=== PATIENT | male | born 1955 | race Caucasian/White ===

== ENCOUNTER 2023-05-25 10:39 | Inpatient (IN) | payer OTHER ==
[2023-05-25] VITALS (22 sets, daily range): BP systolic 83–119; BP diastolic 51–77; TEMP 97.6–98.6; O2SAT 89–97
[~2023-05-25] VITALS: Ht 180.3 cm; Wt 136.0 kg
[2023-05-25] MEDS ORDERED: HYDR-4517 PO (10:57)
[2023-05-25] MEDS ORDERED: FLUO0.0119 OTIC (10:57)
[2023-05-25] MEDS ORDERED: ROSU10TA6 PO (10:57)
[2023-05-25] MEDS ORDERED: HYDROMORPHONE HCL 0.5 MG/ 0.5 ML SYRINGE IV PRN (12:15)
[2023-05-25] MEDS ORDERED: ONDANSETRON 4MG 2ML VIAL IV ONE (12:15)
[2023-05-25] MEDS ORDERED: NS 1,000 ML IV ONE (12:25)
[2023-05-25 12:26] LABS: HEMATOCRIT 49.3 % (42.0-52.0); HEMOGLOBIN 16.7 g/dl (13.5-17.5); MEAN CORPUSCULAR HEMOGLOBIN 28.4 pg (27.0-33.0); MEAN CORPUSCULAR HGB CONC 33.9 g/dl (32.0-36.5); MEAN CORPUSCULAR VOLUME 83.7 fl (80.0-96.0); PLATELET COUNT, AUTOMATED 365 10^3/uL (150-450); RED BLOOD COUNT 5.89 10^6/uL (4.30-6.10)
[2023-05-25 12:31] LABS: WHITE BLOOD COUNT 43.3 10^3/uL (4.0-10.0)
[2023-05-25 12:50] LABS: CALCIUM LEVEL 9.2 MG/DL (8.3-10.6); CREATININE FOR GFR 5.29 MG/DL (0.70-1.30); GLOMERULAR FILTRATION RATE 11.5 (>42); POTASSIUM SERUM 4.9 MMOL/L (3.5-5.1)
[2023-05-25] MEDS ORDERED: NS 3,950 ML in IV 1 EA IV ONE (12:50)
[2023-05-25] MEDS ORDERED: PIPERACILLIN/TAZOBACTAM SOD 4.5 GM in D5W MINI-BAG PLUS 50 ML IV ONE (12:50)
[2023-05-25] MEDS ORDERED: fentaNYL 100 MCG/2 ML INJECTION IV PRN (12:55)
[2023-05-25 12:59] LABS: ATYPICAL LYMPH 4 % (0-5); EOSINOPHILS 1 % (0-3); LYMPHOCYTES 42 % (16-44); NEUTROPHILS 49 % (28-66); PLATELET ESTIMATE NORMAL (NORMAL)
[2023-05-25 13:31] LABS: ALBUMIN 1.9 G/DL (3.2-5.2); BILIRUBIN,TOTAL 1.2 MG/DL (0.3-1.2); TOTAL PROTEIN 5.6 G/DL (5.7-8.2)
[2023-05-25 13:36] LABS: INR 1.32
[2023-05-25 13:37] LABS: PARTIAL THROMBOPLASTIN TIME 31.3 SECONDS (24.8-34.2)
[2023-05-25 13:39] LABS: PROCALCITONIN 32.56 ng/ml
[2023-05-25] MEDS ORDERED: NOREPINEPHRINE 4MG IN D5 250ML 4 MG in IV 1 EA IV SCH ×2 (13:55)
[2023-05-25 14:24] LABS: ABG pH (ARTERIAL) 7.338 UNITS (7.350-7.450)
[2023-05-25 14:25] LABS: ABG HCO3 17.8 MMOL/L (22.0-26.0); ABG O2 SATURATION 92.7 % (95.0-99.0); ABG PARTIAL PRESSURE CO2 33.9 mmHg (35.0-45.0); ABG PARTIAL PRESSURE O2 63.8 mmHg (75.0-100.0); ABG STANDARD HCO3 18.8 MMOL/L. (22.0-26.0); ABG TOTAL CO2 18.8 MMOL/L (23.0-31.0)
[2023-05-25] MEDS ORDERED: MED REC IN PROGRESS XX SCH (15:30)
[2023-05-25] MEDS ORDERED: ACET-907 PO (15:45)
[2023-05-25] MEDS ORDERED: ACET-897 PO (15:45)
[2023-05-25] MEDS ORDERED: HOME MED LIST COMPLETE! XX SCH (15:50)
[2023-05-25] MEDS ORDERED: SENNA 8.6 MG TAB (SENOKOT) PO PRN (17:45)
[2023-05-25] MEDS: PERCOCET 5MG/325MG TAB PO PRN (18:54)
[2023-05-25] MEDS: LR 1,000 ML IV SCH (19:37)
[2023-05-25] MEDS ORDERED: VASOPRESSIN INJ 20 UNITS in NS 499 ML IV SCH (20:00)
[2023-05-25] MEDS: CHLORHEXIDINE GLUCONATE 0.12 % 15ML UDC (PERIDEX ORAL RINSE) MT SCH (20:47)
[2023-05-25] MEDS: NOREPINEPHRINE 4MG IN D5 250ML 4 MG in IV 1 EA IV SCH ×2 (20:48)
[2023-05-25] MEDS ORDERED: fentaNYL 100 MCG/2 ML INJECTION IV ONE (21:00)
[2023-05-25 21:22] LABS: AMORPHOUS SEDIMENT SMALL (NEGATIVE); APPEARANCE, URINE CLOUDY (CLEAR); BACTERIA, URINE AUTO 1+ (NEGATIVE); BILIRUBIN, URINE AUTO NEGATIVE (NEGATIVE); BLOOD, URINE BLOOD 1+ (NEGATIVE); COLOR, URINE AMBER (YELLOW); GLUCOSE, URINE (UA) AUTO NEGATIVE (NEGATIVE); KETONE, URINE AUTO NEGATIVE (NEGATIVE); LEUKOCYTE ESTERASE, URINE AUTO NEGATIVE (NEGATIVE); MUCUS, URINE SMALL (NEGATIVE); NITRITE, URINE AUTO NEGATIVE (NEGATIVE); PROTEIN, URINE AUTO 2+ mg/dL (NEGATIVE); RBC, URINE AUTO 13 /HPF (0-3); SPECIFIC GRAVITY URINE AUTO 1.019 (1.002-1.035); SQUAMOUS EPITHELIAL CELL UR AU 0 /HPF (0-6); WBC, URINE AUTO 14 /HPF (0-3)
[2023-05-25] MEDS ORDERED: RAMELTEON 8 MG TAB (ROZEREM) PO PRN (21:25)
[2023-05-25] MEDS: QUEtiapine FUMARATE 25 MG TAB PO PRN (21:39)
[2023-05-25] MEDS: DOCUSATE SODIUM 100MG CAPSULE PO SCH (21:39)
[2023-05-25] MEDS: HEPARIN SOD (PORCINE) 5000UNITS/ML 1ML VIAL/SYRINGE SQ SCH (21:40)
[2023-05-26] VITALS (52 sets, daily range): BP systolic 83–133; BP diastolic 51–72; TEMP 97.8–98.4; O2SAT 92–97
[2023-05-26] MEDS ORDERED: PIPERACILLIN/TAZOBACTAM SOD 4.5 GM in D5W MINI-BAG PLUS 50 ML IV SCH (01:00)
[2023-05-26] MEDS: NOREPINEPHRINE 4MG IN D5 250ML 4 MG in IV 1 EA IV SCH ×2 (03:43)
[2023-05-26 04:45] LABS: BASO # 0.1 10^3/uL (0.0-0.2); BASO % 0.2 % (0.0-1.0); EOS # 0.8 10^3/uL (0.0-0.5); EOS % 1.9 % (0.0-3.0); HEMATOCRIT 41.6 % (42.0-52.0); LYMPH # 14.7 10^3/uL (1.5-5.0); LYMPH % 34.4 % (24.0-44.0); MEAN CORPUSCULAR HEMOGLOBIN 28.3 pg (27.0-33.0); MEAN CORPUSCULAR HGB CONC 33.4 g/dl (32.0-36.5); MEAN CORPUSCULAR VOLUME 84.6 fl (80.0-96.0); MONO # 0.6 10^3/uL (0.0-0.8); MONO % 1.5 % (2.0-8.0); PLATELET COUNT, AUTOMATED 318 10^3/uL (150-450); RED BLOOD COUNT 4.92 10^6/uL (4.30-6.10)
[2023-05-26 04:49] LABS: HEMOGLOBIN 13.9 g/dl (13.5-17.5); WHITE BLOOD COUNT 42.8 10^3/uL (4.0-10.0)
[2023-05-26 05:06] LABS: CALCIUM LEVEL 8.2 MG/DL (8.3-10.6); CREATININE FOR GFR 4.61 MG/DL (0.70-1.30); GLOMERULAR FILTRATION RATE 13.5 (>42); POTASSIUM SERUM 4.4 MMOL/L (3.5-5.1)
[2023-05-26] MEDS: LR 1,000 ML IV SCH (05:09)
[2023-05-26] MEDS: HEPARIN SOD (PORCINE) 5000UNITS/ML 1ML VIAL/SYRINGE SQ SCH ×3 (05:09→21:36)
[2023-05-26] MEDS: CHLORHEXIDINE GLUCONATE 0.12 % 15ML UDC (PERIDEX ORAL RINSE) MT SCH ×2 (08:24→20:24)
[2023-05-26] MEDS: PERCOCET 5MG/325MG TAB PO PRN ×3 (10:08→20:24)
[2023-05-26] MEDS: PIPERACILLIN/TAZOBACTAM SOD 4.5 GM in D5W MINI-BAG PLUS 50 ML IV SCH ×2 (10:09→16:19)
[2023-05-26] MEDS: DICLOFENAC EPOLAMINE 1.3% PATCH TOP SCH ×2 (11:28→23:28)
[2023-05-26 16:16] LABS: CREATININE FOR GFR 4.36 MG/DL (0.70-1.30); GLOMERULAR FILTRATION RATE 14.4 (>42); POTASSIUM SERUM 4.1 MMOL/L (3.5-5.1)
[2023-05-26] MEDS ORDERED: DICLOFENAC EPOLAMINE 1.3% PATCH TOP ONE (19:50)
[2023-05-26] MEDS: ROSUVASTATIN 10 MG TAB (CRESTOR) PO SCH (20:22)
[2023-05-26] MEDS: DOCUSATE SODIUM 100MG CAPSULE PO SCH (20:23)
[2023-05-26] MEDS: QUEtiapine FUMARATE 25 MG TAB PO PRN (20:23)
[2023-05-26] MEDS ORDERED: LIDOCAINE 5% (LIDODERM) PATCH TD ONE (22:00)
[2023-05-27] VITALS: BP 95/53; TEMP 97.7; O2SAT 93
[2023-05-27] MEDS: PIPERACILLIN/TAZOBACTAM SOD 4.5 GM in D5W MINI-BAG PLUS 50 ML IV SCH ×3 (01:01→18:19)
[2023-05-27 04:00] VITALS: BP 91/55; TEMP 96.9; O2SAT 94
[2023-05-27] MEDS: HEPARIN SOD (PORCINE) 5000UNITS/ML 1ML VIAL/SYRINGE SQ SCH ×3 (05:05→22:33)
[2023-05-27 08:00] VITALS: BP 107/65; TEMP 97.8; O2SAT 94
[2023-05-27] MEDS: CHLORHEXIDINE GLUCONATE 0.12 % 15ML UDC (PERIDEX ORAL RINSE) MT SCH (09:00)
[2023-05-27] MEDS: DICLOFENAC EPOLAMINE 1.3% PATCH TOP SCH ×2 (09:56→22:33)
[2023-05-27 10:06] LABS: HEMATOCRIT 38.3 % (42.0-52.0); MEAN CORPUSCULAR HEMOGLOBIN 28.6 pg (27.0-33.0); MEAN CORPUSCULAR HGB CONC 33.9 g/dl (32.0-36.5); MEAN CORPUSCULAR VOLUME 84.4 fl (80.0-96.0); PLATELET COUNT, AUTOMATED 255 10^3/uL (150-450); RED BLOOD COUNT 4.54 10^6/uL (4.30-6.10)
[2023-05-27 10:10] LABS: WHITE BLOOD COUNT 38.2 10^3/uL (4.0-10.0)
[2023-05-27 10:32] LABS: CALCIUM LEVEL 7.9 MG/DL (8.3-10.6); CREATININE FOR GFR 3.94 MG/DL (0.70-1.30); GLOMERULAR FILTRATION RATE 16.2 (>42); POTASSIUM SERUM 3.9 MMOL/L (3.5-5.1)
[2023-05-27 12:00] VITALS: BP 108/58; TEMP 98; O2SAT 97
[2023-05-27] MEDS: PERCOCET 5MG/325MG TAB PO PRN ×3 (13:42→22:34)
[2023-05-27 16:00] VITALS: BP 107/68; TEMP 98; O2SAT 93
[2023-05-27 20:00] VITALS: BP 100/59; TEMP 97.3; O2SAT 93
[2023-05-27] MEDS: DOCUSATE SODIUM 100MG CAPSULE PO SCH (20:22)
[2023-05-27] MEDS: ROSUVASTATIN 10 MG TAB (CRESTOR) PO SCH (20:22)
[2023-05-27] MEDS: QUEtiapine FUMARATE 25 MG TAB PO PRN (22:33)
[2023-05-28] VITALS (7 sets, daily range): BP systolic 90–144; BP diastolic 51–75; TEMP 97–98.4; O2SAT 88–98
[2023-05-28] MEDS: PIPERACILLIN/TAZOBACTAM SOD 4.5 GM in D5W MINI-BAG PLUS 50 ML IV SCH ×2 (00:12→08:27)
[2023-05-28] MEDS: PERCOCET 5MG/325MG TAB PO PRN ×3 (04:05→20:06)
[2023-05-28 04:40] LABS: BASO # 0.1 10^3/uL (0.0-0.2); BASO % 0.1 % (0.0-1.0); EOS # 0.9 10^3/uL (0.0-0.5); EOS % 2.2 % (0.0-3.0); HEMATOCRIT 41.3 % (42.0-52.0); HEMOGLOBIN 13.9 g/dl (13.5-17.5); LYMPH % 29.1 % (24.0-44.0); MEAN CORPUSCULAR HEMOGLOBIN 28.6 pg (27.0-33.0); MEAN CORPUSCULAR HGB CONC 33.7 g/dl (32.0-36.5); MONO # 0.9 10^3/uL (0.0-0.8); MONO % 2.2 % (2.0-8.0); NEUTROPHILS # 22.7 10^3/uL (1.5-8.5); NEUTROPHILS % 55.4 % (36.0-66.0); PLATELET COUNT, AUTOMATED 285 10^3/uL (150-450); RED BLOOD COUNT 4.86 10^6/uL (4.30-6.10)
[2023-05-28 04:56] LABS: CALCIUM LEVEL 8.2 MG/DL (8.3-10.6); CREATININE FOR GFR 3.63 MG/DL (0.70-1.30); GLOMERULAR FILTRATION RATE 17.8 (>42); POTASSIUM SERUM 4.1 MMOL/L (3.5-5.1)
[2023-05-28] MEDS: HEPARIN SOD (PORCINE) 5000UNITS/ML 1ML VIAL/SYRINGE SQ SCH ×3 (05:16→22:21)
[2023-05-28] MEDS: DICLOFENAC EPOLAMINE 1.3% PATCH TOP SCH ×2 (10:51→22:21)
[2023-05-28] MEDS: AUGMENTIN 500MG TAB PO SCH ×2 (14:51→20:08)
[2023-05-28] MEDS: GASTROGRAFIN SOLUTION 30ML PO SCH ×2 (16:02→16:25)
[2023-05-28] MEDS: QUEtiapine FUMARATE 25 MG TAB PO PRN (20:07)
[2023-05-28] MEDS: ROSUVASTATIN 10 MG TAB (CRESTOR) PO SCH (20:07)
[2023-05-28] MEDS: DOCUSATE SODIUM 100MG CAPSULE PO SCH (20:12)
[2023-05-29 04:00] VITALS: BP 94/54; TEMP 97.1; O2SAT 93
[2023-05-29] MEDS: HEPARIN SOD (PORCINE) 5000UNITS/ML 1ML VIAL/SYRINGE SQ SCH ×3 (05:18→21:48)
[2023-05-29 05:39] LABS: HEMATOCRIT 40.1 % (42.0-52.0); HEMOGLOBIN 13.2 g/dl (13.5-17.5); MEAN CORPUSCULAR HGB CONC 32.9 g/dl (32.0-36.5); MEAN CORPUSCULAR VOLUME 85.1 fl (80.0-96.0); PLATELET COUNT, AUTOMATED 315 10^3/uL (150-450); RED BLOOD COUNT 4.71 10^6/uL (4.30-6.10)
[2023-05-29 05:46] LABS: WHITE BLOOD COUNT 56.5 10^3/uL (4.0-10.0)
[2023-05-29 06:00] LABS: CALCIUM LEVEL 8.1 MG/DL (8.3-10.6); CREATININE FOR GFR 3.06 MG/DL (0.70-1.30); GLOMERULAR FILTRATION RATE 21.6 (>42)
[2023-05-29 06:33] LABS: ATYPICAL LYMPH 11 % (0-5); EOSINOPHILS 1 % (0-3); LYMPHOCYTES 10 % (16-44); METAMYELOCYTES 2 % (0-0); MONOCYTES 7 % (0-5); MYELOCYTES 2 % (0-0); NEUTROPHILS 64 % (28-66)
[2023-05-29 06:34] LABS: PLATELET ESTIMATE NORMAL (NORMAL)
[2023-05-29 08:00] VITALS: BP 104/71; TEMP 98.1; O2SAT 92
[2023-05-29] MEDS: AUGMENTIN 500MG TAB PO SCH ×2 (08:07→20:08)
[2023-05-29] MEDS: PERCOCET 5MG/325MG TAB PO PRN ×2 (08:08→20:08)
[2023-05-29 10:00] VITALS: BP 103/59; O2SAT 93
[2023-05-29] MEDS: DICLOFENAC EPOLAMINE 1.3% PATCH TOP SCH ×2 (10:06→21:48)
[2023-05-29 12:00] VITALS: BP 106/63; TEMP 98.2; O2SAT 94
[2023-05-29] MEDS ORDERED: LIDOCAINE 1% MDV 20ML VIAL As Ordered ONE (13:51)
[2023-05-29 15:14] VITALS: BP 134/72; O2SAT 93
[2023-05-29 20:00] VITALS: BP 112/57; TEMP 98.3; O2SAT 92
[2023-05-29] MEDS: DOCUSATE SODIUM 100MG CAPSULE PO SCH (20:08)
[2023-05-29] MEDS: ROSUVASTATIN 10 MG TAB (CRESTOR) PO SCH (20:08)
[2023-05-29] MEDS: QUEtiapine FUMARATE 25 MG TAB PO PRN (20:08)
[2023-05-30] VITALS: BP 115/59; TEMP 97.2; O2SAT 94
[2023-05-30] MEDS: PERCOCET 5MG/325MG TAB PO PRN ×4 (00:31→22:44)
[2023-05-30 03:59] VITALS: BP 123/78; TEMP 97; O2SAT 97
[2023-05-30] MEDS: HEPARIN SOD (PORCINE) 5000UNITS/ML 1ML VIAL/SYRINGE SQ SCH (05:05)
[2023-05-30 06:02] LABS: BASO # 0.1 10^3/uL (0.0-0.2); BASO % 0.2 % (0.0-1.0); EOS # 0.3 10^3/uL (0.0-0.5); EOS % 0.6 % (0.0-3.0); HEMATOCRIT 38.3 % (42.0-52.0); HEMOGLOBIN 13.3 g/dl (13.5-17.5); LYMPH # 14.1 10^3/uL (1.5-5.0); LYMPH % 30.9 % (24.0-44.0); MEAN CORPUSCULAR HEMOGLOBIN 29.6 pg (27.0-33.0); MEAN CORPUSCULAR HGB CONC 34.7 g/dl (32.0-36.5); MEAN CORPUSCULAR VOLUME 85.1 fl (80.0-96.0); MONO # 1.3 10^3/uL (0.0-0.8); MONO % 2.8 % (2.0-8.0); NEUTROPHILS # 23.8 10^3/uL (1.5-8.5); NEUTROPHILS % 52.3 % (36.0-66.0); PLATELET COUNT, AUTOMATED 331 10^3/uL (150-450)
[2023-05-30 06:06] LABS: WHITE BLOOD COUNT 45.5 10^3/uL (4.0-10.0)
[2023-05-30 06:37] LABS: CALCIUM LEVEL 8.2 MG/DL (8.3-10.6); CREATININE FOR GFR 2.46 MG/DL (0.70-1.30); GLOMERULAR FILTRATION RATE 27.8 (>42); POTASSIUM SERUM 4.2 MMOL/L (3.5-5.1)
[2023-05-30 08:02] VITALS: BP 112/63; TEMP 97.1; O2SAT 96
[2023-05-30] MEDS: AUGMENTIN 500MG TAB PO SCH ×2 (08:09→20:02)
[2023-05-30] MEDS: DICLOFENAC EPOLAMINE 1.3% PATCH TOP SCH ×2 (11:02→22:44)
[2023-05-30 12:28] VITALS: BP 101/61; TEMP 97.3; O2SAT 97
[2023-05-30 16:04] VITALS: BP 110/79; TEMP 97.1; O2SAT 93
[2023-05-30] MEDS: ENOXAPARIN 40MG/0.4ML SYRINGE (J1650 PER 10MG) SC SCH (18:24)
[2023-05-30 19:58] VITALS: BP 118/61; TEMP 97.7; O2SAT 93
[2023-05-30] MEDS: DOCUSATE SODIUM 100MG CAPSULE PO SCH (20:00)
[2023-05-30] MEDS: ROSUVASTATIN 10 MG TAB (CRESTOR) PO SCH (20:02)
[2023-05-30] MEDS: QUEtiapine FUMARATE 25 MG TAB PO PRN (22:43)
[2023-05-31] MEDS: PERCOCET 5MG/325MG TAB PO PRN ×4 (02:58→20:28)
[2023-05-31 04:00] VITALS: BP 117/58; TEMP 97.4; O2SAT 96
[2023-05-31] MEDS: ENOXAPARIN 40MG/0.4ML SYRINGE (J1650 PER 10MG) SC SCH ×2 (05:44→17:37)
[2023-05-31 07:58] LABS: HEMATOCRIT 40.7 % (42.0-52.0); MEAN CORPUSCULAR HEMOGLOBIN 28.1 pg (27.0-33.0); MEAN CORPUSCULAR HGB CONC 31.9 g/dl (32.0-36.5); MEAN CORPUSCULAR VOLUME 88.1 fl (80.0-96.0); PLATELET COUNT, AUTOMATED 375 10^3/uL (150-450); RED BLOOD COUNT 4.62 10^6/uL (4.30-6.10)
[2023-05-31 08:00] VITALS: BP 126/74; TEMP 98.4; O2SAT 98
[2023-05-31 08:03] LABS: WHITE BLOOD COUNT 46.8 10^3/uL (4.0-10.0)
[2023-05-31 08:19] LABS: CALCIUM LEVEL 8.1 MG/DL (8.3-10.6); CREATININE FOR GFR 1.97 MG/DL (0.70-1.30); MAGNESIUM LEVEL 1.4 MG/DL (1.8-2.4)
[2023-05-31 08:58] LABS: ANISOCYTOSIS 1+; ATYPICAL LYMPH 1 % (0-5); LYMPHOCYTES 33 % (16-44); METAMYELOCYTES 4 % (0-0); MONOCYTES 3 % (0-5); MYELOCYTES 2 % (0-0); NEUTROPHILS 56 % (28-66); PLATELET ESTIMATE NORMAL (NORMAL); SMUDGE CELLS 2+
[2023-05-31] MEDS ORDERED: ENOXAPARIN 40MG/0.4ML SYRINGE (J1650 PER 10MG) SC SCH (09:00)
[2023-05-31] MEDS: AUGMENTIN 500MG TAB PO SCH (09:37)
[2023-05-31] MEDS: DICLOFENAC EPOLAMINE 1.3% PATCH TOP SCH ×2 (10:55→22:44)
[2023-05-31 12:00] VITALS: BP 115/70; TEMP 98; O2SAT 98
[2023-05-31] MEDS: MAG SULF 1GM/100ML (MAG RUN) 1 GM in IV 1 EA IV SCH ×3 (13:03→15:20)
[2023-05-31 16:00] VITALS: BP 122/58; TEMP 98.6; O2SAT 92
[2023-05-31 16:44] LABS: C REACTIVE PROTEIN QUANTITATIV 11.4 MG/DL (<1.0)
[2023-05-31 20:19] VITALS: BP 126/73; TEMP 97.4; O2SAT 92
[2023-05-31] MEDS: DOCUSATE SODIUM 100MG CAPSULE PO SCH (20:27)
[2023-05-31] MEDS: AUGMENTIN 875 MG TAB PO SCH (20:27)
[2023-05-31] MEDS: QUEtiapine FUMARATE 25 MG TAB PO PRN (20:28)
[2023-05-31] MEDS: ROSUVASTATIN 10 MG TAB (CRESTOR) PO SCH (20:28)
[2023-06-01 03:54] VITALS: BP 119/73; TEMP 97.8; O2SAT 93
[2023-06-01] MEDS: PERCOCET 5MG/325MG TAB PO PRN (04:14)
[2023-06-01 04:24] LABS: HEMATOCRIT 37.5 % (42.0-52.0); HEMOGLOBIN 12.3 g/dl (13.5-17.5); MEAN CORPUSCULAR HEMOGLOBIN 28.2 pg (27.0-33.0); MEAN CORPUSCULAR HGB CONC 32.8 g/dl (32.0-36.5); PLATELET COUNT, AUTOMATED 445 10^3/uL (150-450); RED BLOOD COUNT 4.36 10^6/uL (4.30-6.10)
[2023-06-01 04:32] LABS: WHITE BLOOD COUNT 42.7 10^3/uL (4.0-10.0)
[2023-06-01 04:45] LABS: CALCIUM LEVEL 8.1 MG/DL (8.3-10.6); CREATININE FOR GFR 1.62 MG/DL (0.70-1.30); GLOMERULAR FILTRATION RATE 45.1 (>42); MAGNESIUM LEVEL 1.6 MG/DL (1.8-2.4); POTASSIUM SERUM 4.1 MMOL/L (3.5-5.1)
[2023-06-01] MEDS: MAG SULF 1GM/100ML (MAG RUN) 1 GM in IV 1 EA IV SCH ×2 (05:06→05:53)
[2023-06-01] MEDS: ENOXAPARIN 40MG/0.4ML SYRINGE (J1650 PER 10MG) SC SCH (05:06)
[2023-06-01 05:07] LABS: ATYPICAL LYMPH 2 % (0-5); LYMPHOCYTES 15 % (16-44); METAMYELOCYTES 4 % (0-0); MONOCYTES 2 % (0-5); MYELOCYTES 3 % (0-0); NEUTROPHILS 72 % (28-66)
[2023-06-01 05:08] LABS: SMUDGE CELLS 2+
[2023-06-01 05:09] LABS: PLATELET ESTIMATE NORMAL (NORMAL)
[2023-06-01 08:17] VITALS: BP 95/51; TEMP 97; O2SAT 91
[2023-06-01] MEDS: AUGMENTIN 875 MG TAB PO SCH (09:19)
[2023-06-01] MEDS: DICLOFENAC EPOLAMINE 1.3% PATCH TOP SCH ×2 (09:19→09:25)
[2023-06-01] MEDS ORDERED: AMOX875T2 PO (12:52)
== END 2023-06-01 14:07 | disposition home health service (06) | DRG 871 ==
LOC: M ED 10:39 → M ED INP 15:53 → ENRESERV 16:51 → M ICU 18:19
PROVIDERS: ADMIT Internal Medicine Pulmonary Disease; ATTEND Student in an Organized Health Care Education/Training Program
PROC: 0W9J30Z Drainage of Pelvic Cavity with Drainage Device, Percutaneous Approach (ICD-10-PCS; principal; 2023-05-29 14:00)
DX: A41.9 Sepsis, unspecified organism (principal); R65.21 Severe sepsis with septic shock; K65.1 Peritoneal abscess; E87.1 Hypo-osmolality and hyponatremia; N17.9 Acute kidney failure, unspecified; Z68.41 Body mass index [BMI] 40.0-44.9, adult; E87.20 Acidosis, unspecified; C91.91 Lymphoid leukemia, unspecified, in remission; G89.29 Other chronic pain; E66.01 Morbid (severe) obesity due to excess calories; R10.84 Generalized abdominal pain; G47.33 Obstructive sleep apnea (adult) (pediatric); K21.9 Gastro-esophageal reflux disease without esophagitis; R11.2 Nausea with vomiting, unspecified; M54.9 Dorsalgia, unspecified; E78.5 Hyperlipidemia, unspecified; I48.91 Unspecified atrial fibrillation; F17.210 Nicotine dependence, cigarettes, uncomplicated; Z85.46 Personal history of malignant neoplasm of prostate

== ENCOUNTER → 2023-06-14 | Outpatient (REF) | payer OTHER ==
[~2023-06-14] MED LIST: ACET-897 PO; ACET-907 PO; AMOX875T PO; AMOX875T2 PO; BACI1CAP PO; DOCU100C16 PO; ECOT81TA5 PO; ELIQ5TAB PO; FLUO0.0119 OTIC; HYDR-3490 PO; HYDR-4517 PO; HYDR-4571 PO; LINZ72CA PO; MILK400S12 PO; MIRA3350 PO; NYST10006 TOP; PERC5TAB12 PO; POTA10CA60 PO; PRIL20TA2 PO; ROSU10TA6 PO; SENO8.6T10 PO
[2023-06-14 19:08] LABS: APPEARANCE, URINE HAZY (CLEAR); BACTERIA, URINE AUTO NEGATIVE (NEGATIVE); BILIRUBIN, URINE AUTO NEGATIVE (NEGATIVE); BLOOD, URINE BLOOD NEGATIVE (NEGATIVE); COLOR, URINE YELLOW (YELLOW); GLUCOSE, URINE (UA) AUTO NEGATIVE (NEGATIVE); KETONE, URINE AUTO TRACE mg/dL (NEGATIVE); LEUKOCYTE ESTERASE, URINE AUTO NEGATIVE (NEGATIVE); MUCUS, URINE SMALL (NEGATIVE); NITRITE, URINE AUTO NEGATIVE (NEGATIVE); PROTEIN, URINE AUTO 1+ mg/dL (NEGATIVE); RBC, URINE AUTO 1 /HPF (0-3); SPECIFIC GRAVITY URINE AUTO 1.023 (1.002-1.035); SQUAMOUS EPITHELIAL CELL UR AU 0 /HPF (0-6); UROBILINOGEN, URINE AUTO 0.2 mg/dL (0.0-2.0); WBC, URINE AUTO 1 /HPF (0-3)
[2023-06-14 19:12] LABS: BASO # 0.2 10^3/uL (0.0-0.2); BASO % 0.7 % (0.0-1.0); EOS # 0.3 10^3/uL (0.0-0.5); EOS % 1.1 % (0.0-3.0); HEMATOCRIT 40.5 % (42.0-52.0); HEMOGLOBIN 12.4 g/dl (13.5-17.5); LYMPH # 12.2 10^3/uL (1.5-5.0); LYMPH % 50.9 % (24.0-44.0); MEAN CORPUSCULAR HEMOGLOBIN 28.1 pg (27.0-33.0); MEAN CORPUSCULAR HGB CONC 30.6 g/dl (32.0-36.5); MEAN CORPUSCULAR VOLUME 91.8 fl (80.0-96.0); MONO # 1.2 10^3/uL (0.0-0.8); MONO % 4.8 % (2.0-8.0); NEUTROPHILS # 9.5 10^3/uL (1.5-8.5); NEUTROPHILS % 39.4 % (36.0-66.0); PLATELET COUNT, AUTOMATED 543 10^3/uL (150-450); RED BLOOD COUNT 4.41 10^6/uL (4.30-6.10)
[2023-06-14 19:42] LABS: THYROID STIMULATING HORMONE 2.205 uIU/ML (0.55-4.78)
[2023-06-14 19:44] LABS: FREE T4 1.24 NG/DL (0.89-1.76)
[2023-06-14 19:45] LABS: CALCIUM LEVEL 9.1 MG/DL (8.3-10.6); CHOLESTEROL RISK RATIO 3.06 (<5); CREATININE FOR GFR 1.55 MG/DL (0.70-1.30); GLOMERULAR FILTRATION RATE 47.4 (>42); HDL CHOLESTEROL 54.9 MG/DL (>40); LDL CHOLESTEROL 92.3 MG/DL (<100); MB/CK RELATIVE INDEX 2.08 (< OR =4); NON-HDL-C 113.1 MG/DL
[2023-06-14 20:21] LABS: HEMOGLOBIN A1c 5.5 % (4.0-6.0)
[2023-06-16 19:10] LABS: PSA TOTAL 3.7 ng/mL (0.0-4.0)
== END ==
LOC: M PLALAB 16:49
PROVIDERS: ATTEND Physician Assistant
DX: R60.0 Localized edema (principal); I48.0 Paroxysmal atrial fibrillation; R39.0 Extravasation of urine; Z85.46 Personal history of malignant neoplasm of prostate; Z79.899 Other long term (current) drug therapy

== ENCOUNTER → 2023-06-14 | Outpatient (CLI) | payer OTHER | LOC: M RAD 16:17 | PROVIDERS: ATTEND Physician Assistant | DX: R60.0 Localized edema (principal) ==

== ENCOUNTER → 2023-06-26 | Outpatient (CLI) | payer OTHER ==
[~2023-06-26] MED LIST changes: -AMOX875T PO; -BACI1CAP PO; -ELIQ5TAB PO; -MILK400S12 PO; -MIRA3350 PO; -PERC5TAB12 PO; -PRIL20TA2 PO; -SENO8.6T10 PO
[2023-06-26 13:35] LABS: HEMATOCRIT 41.1 % (42.0-52.0); HEMOGLOBIN 12.6 g/dl (13.5-17.5); MEAN CORPUSCULAR HEMOGLOBIN 27.7 pg (27.0-33.0); MEAN CORPUSCULAR HGB CONC 30.7 g/dl (32.0-36.5); MEAN CORPUSCULAR VOLUME 90.3 fl (80.0-96.0); PLATELET COUNT, AUTOMATED 435 10^3/uL (150-450); RED BLOOD COUNT 4.55 10^6/uL (4.30-6.10)
[2023-06-26 13:56] LABS: ERYTHROCYTE SEDIMENTATION RATE > 130 mm/hr (0-20)
[2023-06-26 14:09] LABS: BILIRUBIN,TOTAL 0.4 MG/DL (0.3-1.2); CALCIUM LEVEL 9.3 MG/DL (8.3-10.6); CREATININE FOR GFR 1.42 MG/DL (0.70-1.30); GLOMERULAR FILTRATION RATE 52.5 (>42); POTASSIUM SERUM 5.4 MMOL/L (3.5-5.1); TOTAL PROTEIN 7.3 G/DL (5.7-8.2)
[2023-06-26 14:10] LABS: LYMPHOCYTES 46 % (16-44); MONOCYTES 9 % (0-5); NEUTROPHILS 45 % (28-66); PLATELET ESTIMATE NORMAL (NORMAL)
== END ==
LOC: M PLALAB 11:01
PROVIDERS: ATTEND Internal Medicine Infectious Disease
DX: K65.1 Peritoneal abscess (principal)

== ENCOUNTER → 2023-07-03 | Outpatient (CLI) | payer OTHER | LOC: M PLAIMG 09:09 | PROVIDERS: ATTEND Internal Medicine Medical Oncology | DX: C85.90 Non-Hodgkin lymphoma, unspecified, unspecified site (principal) ==

== ENCOUNTER → 2023-07-03 | Outpatient (CLI) | payer OTHER ==
[2023-07-03 14:13] LABS: BASO # 0.2 10^3/uL (0.0-0.2); BASO % 0.6 % (0.0-1.0); EOS # 0.2 10^3/uL (0.0-0.5); EOS % 0.7 % (0.0-3.0); LYMPH # 10.2 10^3/uL (1.5-5.0); LYMPH % 42.4 % (24.0-44.0); MEAN CORPUSCULAR HEMOGLOBIN 27.8 pg (27.0-33.0); MEAN CORPUSCULAR VOLUME 89.9 fl (80.0-96.0); MONO # 1.4 10^3/uL (0.0-0.8); MONO % 5.9 % (2.0-8.0); NEUTROPHILS # 11.8 10^3/uL (1.5-8.5); NEUTROPHILS % 49.1 % (36.0-66.0); PLATELET COUNT, AUTOMATED 470 10^3/uL (150-450); RED BLOOD COUNT 4.67 10^6/uL (4.30-6.10); WHITE BLOOD COUNT 24.1 10^3/uL (4.0-10.0)
[2023-07-03 14:18] LABS: C REACTIVE PROTEIN QUANTITATIV 6.5 MG/DL (<1.0)
[2023-07-03 14:21] LABS: ALBUMIN 3.2 G/DL (3.2-5.2); BILIRUBIN,TOTAL 0.5 MG/DL (0.3-1.2); CALCIUM LEVEL 9.8 MG/DL (8.3-10.6); CREATININE FOR GFR 1.63 MG/DL (0.70-1.30); GLOMERULAR FILTRATION RATE 44.8 (>42); POTASSIUM SERUM 5.1 MMOL/L (3.5-5.1); TOTAL PROTEIN 7.8 G/DL (5.7-8.2)
[2023-07-03 14:38] LABS: ERYTHROCYTE SEDIMENTATION RATE > 130 mm/hr (0-20)
== END ==
LOC: M PLALAB 09:42
PROVIDERS: ATTEND Internal Medicine Infectious Disease
DX: K65.1 Peritoneal abscess (principal)

== ENCOUNTER 2023-07-04 10:29 | Inpatient (IN) | payer OTHER ==
[~2023-07-04] VITALS: Ht 177.8 cm; Wt 128.6 kg
[~2023-07-04 10:29] MED LIST changes: -AMOX875T PO; -BACI1CAP PO; -ECOT81TA5 PO; -ELIQ5TAB PO; -ISOVUE-370 76% 100ML VIAL As Ordered ONE; -LIDOCAINE 1% MDV 20ML VIAL As Ordered ONE; -LINZ72CA PO; -MILK400S12 PO; -MIRA3350 PO; -PERC5TAB12 PO; -PRIL20TA2 PO; -SENO8.6T10 PO
[2023-07-04] MEDS ORDERED: ECOT81TA5 PO (10:47)
[2023-07-04] MEDS ORDERED: LINZ72CA PO (10:47)
[2023-07-04] MEDS ORDERED: HYDR-3490 PO (10:47)
[2023-07-04] MEDS ORDERED: AMOX875T2 PO (10:49)
[2023-07-04] MEDS ORDERED: ONDANSETRON 4MG 2ML VIAL IV ONE (12:25)
[2023-07-04 12:51] LABS: HEMATOCRIT 37.7 % (42.0-52.0); MEAN CORPUSCULAR HEMOGLOBIN 28.1 pg (27.0-33.0); MEAN CORPUSCULAR HGB CONC 31.8 g/dl (32.0-36.5); MEAN CORPUSCULAR VOLUME 88.3 fl (80.0-96.0); PLATELET COUNT, AUTOMATED 369 10^3/uL (150-450); RED BLOOD COUNT 4.27 10^6/uL (4.30-6.10); WHITE BLOOD COUNT 20.7 10^3/uL (4.0-10.0)
[2023-07-04 12:58] LABS: ERYTHROCYTE SEDIMENTATION RATE 127 mm/hr (0-20)
[2023-07-04 13:04] LABS: INR 1.13; PROTHROMBIN TIME 14.2 SECONDS (12.5-14.5)
[2023-07-04 13:09] LABS: LYMPHOCYTES 47 % (16-44); MONOCYTES 3 % (0-5); NEUTROPHILS 49 % (28-66)
[2023-07-04 13:10] LABS: PLATELET ESTIMATE NORMAL (NORMAL)
[2023-07-04 13:17] LABS: LIPASE 47 U/L (12-53)
[2023-07-04] MEDS: MORPHINE 4 MG/ML 1ML VIAL IV PRN ×2 (13:18→15:55)
[2023-07-04 13:22] LABS: ALKALINE PHOSPHATASE 103 U/L (46-116); ALT/SGPT < 9 U/L (7.0-40); AST/SGOT 13 U/L (<34); BILIRUBIN,DIRECT 0.2 MG/DL (<0.4); BILIRUBIN,TOTAL 0.5 MG/DL (0.3-1.2); TOTAL PROTEIN 7.3 G/DL (5.7-8.2)
[2023-07-04] MEDS ORDERED: PIPERACILLIN/TAZOBACTAM SOD 3.375 GM in D5W MINI-BAG PLUS 50 ML IV ONE (15:10)
[2023-07-04] MEDS ORDERED: HEPARIN DRIP 25,000 UNITS in IV 1 EA IV SCH (15:15)
[2023-07-04] MEDS ORDERED: HEPARIN SOD (PORCINE) 5000UNITS/ML 1ML VIAL/SYRINGE IV PRN (15:15)
[2023-07-04] MEDS ORDERED: MORPHINE 4 MG/ML 1ML VIAL IV PRN (15:25)
[2023-07-04] MEDS ORDERED: NALOXONE INJ 0.4MG/1ML VIAL IV PRN (15:25)
[2023-07-04] MEDS ORDERED: PERCOCET 5MG/325MG TAB PO PRN (15:25)
[2023-07-04] MEDS ORDERED: MED REC IN PROGRESS XX SCH (15:30)
[2023-07-04] MEDS ORDERED: HOME MED LIST COMPLETE! XX SCH (16:15)
[2023-07-04] MEDS ORDERED: HYDROMORPHONE HCL 0.5 MG/ 0.5 ML SYRINGE IV ONE (16:15)
[2023-07-04 16:52] LABS: HEMATOCRIT 37.4 % (42.0-52.0); HEMOGLOBIN 11.9 g/dl (13.5-17.5); MEAN CORPUSCULAR HEMOGLOBIN 28.5 pg (27.0-33.0); MEAN CORPUSCULAR HGB CONC 31.8 g/dl (32.0-36.5); MEAN CORPUSCULAR VOLUME 89.5 fl (80.0-96.0); PLATELET COUNT, AUTOMATED 368 10^3/uL (150-450); RED BLOOD COUNT 4.18 10^6/uL (4.30-6.10); WHITE BLOOD COUNT 19.5 10^3/uL (4.0-10.0)
[2023-07-04] MEDS ORDERED: SODIUM CHLORIDE 0.9% 1000ML IV ONE (17:35)
[2023-07-04] MEDS: PERCOCET 5MG/325MG TAB PO PRN (19:18)
[2023-07-04 20:03] VITALS: BP 142/80; TEMP 97.9; O2SAT 96
[2023-07-04] MEDS: NS 1,000 ML IV SCH (22:03)
[2023-07-04] MEDS: PIPERACILLIN/TAZOBACTAM SOD 3.375 GM in D5W MINI-BAG PLUS 50 ML IV SCH (22:27)
[2023-07-05] MEDS: NS 1,000 ML IV SCH ×2 (03:35→09:32)
[2023-07-05] MEDS: PIPERACILLIN/TAZOBACTAM SOD 3.375 GM in D5W MINI-BAG PLUS 50 ML IV SCH ×4 (04:45→22:32)
[2023-07-05 05:30] VITALS: BP_SYST 109; BP_SYST 133; BP_DIAS 66; BP_DIAS 85; TEMP 97.5; TEMP 97.9; O2SAT 100; O2SAT 97
[2023-07-05] MEDS: ASPIRIN 81MG ENTERIC TABLET PO SCH (08:00)
[2023-07-05] MEDS: PERCOCET 5MG/325MG TAB PO PRN ×3 (08:01→22:33)
[2023-07-05] MEDS ORDERED: APIXABAN 5 MG TAB (ELIQUIS) PO SCH ×2 (09:00→18:00)
[2023-07-05] MEDS ORDERED: HYDROMORPHONE HCL 0.5 MG/ 0.5 ML SYRINGE IV ONE (11:05)
[2023-07-05 12:22] LABS: HEMATOCRIT 34.4 % (42.0-52.0); HEMOGLOBIN 10.9 g/dl (13.5-17.5); MEAN CORPUSCULAR HEMOGLOBIN 28.2 pg (27.0-33.0); MEAN CORPUSCULAR HGB CONC 31.7 g/dl (32.0-36.5); MEAN CORPUSCULAR VOLUME 89.1 fl (80.0-96.0); PLATELET COUNT, AUTOMATED 347 10^3/uL (150-450); RED BLOOD COUNT 3.86 10^6/uL (4.30-6.10); WHITE BLOOD COUNT 18.3 10^3/uL (4.0-10.0)
[2023-07-05] MEDS ORDERED: ISOVUE-370 76% 100ML VIAL As Ordered ONE (13:37)
[2023-07-05] MEDS ORDERED: LIDOCAINE 1% MDV 20ML VIAL As Ordered ONE (13:58)
[2023-07-05] MEDS ORDERED: ISOVUE-300 61% 100ML VIAL As Ordered ONE (13:58)
[2023-07-05 15:00] VITALS: BP 157/89; TEMP 97.7; O2SAT 99
[2023-07-05] MEDS ORDERED: HEPARIN DRIP 25,000 UNITS in IV 1 EA IV SCH (15:20)
[2023-07-05 22:39] LABS: INR 1.13; PROTHROMBIN TIME 14.2 SECONDS (12.5-14.5)
[2023-07-05 22:40] LABS: PARTIAL THROMBOPLASTIN TIME 35.1 SECONDS (24.8-34.2)
[2023-07-05] MEDS: HEPARIN SOD (PORCINE) 5000UNITS/ML 1ML VIAL/SYRINGE IV PRN (22:54)
[2023-07-06] MEDS: PERCOCET 5MG/325MG TAB PO PRN ×3 (04:35→22:29)
[2023-07-06 04:50] VITALS: BP 130/73; TEMP 98.1; O2SAT 94
[2023-07-06] MEDS: PIPERACILLIN/TAZOBACTAM SOD 3.375 GM in D5W MINI-BAG PLUS 50 ML IV SCH ×4 (05:51→22:03)
[2023-07-06] MEDS: HEPARIN SOD (PORCINE) 5000UNITS/ML 1ML VIAL/SYRINGE IV PRN (07:18)
[2023-07-06] MEDS: GASTROGRAFIN SOLUTION 30ML PO SCH (09:41)
[2023-07-06] MEDS ORDERED: ISOVUE-370 76% 100ML VIAL As Ordered ONE (10:01)
[2023-07-06] MEDS: ASPIRIN 81MG ENTERIC TABLET PO SCH (12:30)
[2023-07-06] MEDS ORDERED: POLYETHYLENE GLYCOL (MIRALAX) 238GM BOTTLE PO ONE (13:00)
[2023-07-06 14:07] LABS: INR 1.19; PROTHROMBIN TIME 14.8 SECONDS (12.5-14.5)
[2023-07-06 14:08] LABS: PARTIAL THROMBOPLASTIN TIME 32.5 SECONDS (24.8-34.2)
[2023-07-06] MEDS ORDERED: DIATRIZOATE MEGLUMINE 30% 300ML (300MG/ML) CYSTOGRAFIN As Ordered ONE (14:37)
[2023-07-06 15:50] VITALS: BP 128/71; TEMP 97.7; O2SAT 94
[2023-07-06] MEDS: APIXABAN 5 MG TAB (ELIQUIS) PO SCH (17:37)
[2023-07-06 20:43] VITALS: BP 110/50; TEMP 97.5; O2SAT 92
[2023-07-07] MEDS: PIPERACILLIN/TAZOBACTAM SOD 3.375 GM in D5W MINI-BAG PLUS 50 ML IV SCH ×3 (03:37→16:16)
[2023-07-07] MEDS: PERCOCET 5MG/325MG TAB PO PRN ×3 (04:54→18:17)
[2023-07-07 06:00] VITALS: BP 133/71; TEMP 97.9; O2SAT 92
[2023-07-07 07:50] LABS: HEMATOCRIT 35.3 % (42.0-52.0); HEMOGLOBIN 11.5 g/dl (13.5-17.5); MEAN CORPUSCULAR HGB CONC 32.6 g/dl (32.0-36.5); MEAN CORPUSCULAR VOLUME 86.1 fl (80.0-96.0); PLATELET COUNT, AUTOMATED 390 10^3/uL (150-450); WHITE BLOOD COUNT 18.5 10^3/uL (4.0-10.0)
[2023-07-07 08:22] LABS: EOSINOPHILS 1 % (0-3); LYMPHOCYTES 28 % (16-44); MONOCYTES 4 % (0-5); NEUTROPHILS 67 % (28-66)
[2023-07-07 08:26] LABS: PLATELET ESTIMATE NORMAL (NORMAL); SMUDGE CELLS 1+
[2023-07-07 08:39] LABS: ERYTHROCYTE SEDIMENTATION RATE > 130 mm/hr (0-20)
[2023-07-07] MEDS: ASPIRIN 81MG ENTERIC TABLET PO SCH (09:36)
[2023-07-07] MEDS: APIXABAN 5 MG TAB (ELIQUIS) PO SCH (09:37)
[2023-07-07 13:52] VITALS: BP 134/77; TEMP 98.2; O2SAT 92
[2023-07-07] MEDS ORDERED: ELIQ5TAB PO ×2 (17:13→18:40)
[2023-07-07] MEDS ORDERED: PRIL20TA2 PO ×2 (17:13→18:40)
[2023-07-07] MEDS ORDERED: AMOX875T PO (17:13)
[2023-07-07] MEDS ORDERED: BACI1CAP PO ×2 (17:13→18:40)
[2023-07-07] MEDS ORDERED: AUGMENTIN 875 MG TAB PO ONE (18:30)
[2023-07-07] MEDS ORDERED: APIXABAN 5 MG TAB (ELIQUIS) PO ONE (18:30)
[2023-07-07] MEDS ORDERED: AMOX875T2 PO (18:40)
[2023-07-07] MEDS ORDERED: PERC5TAB12 PO (18:40)
[2023-07-07] MEDS ORDERED: SENO8.6T10 PO (18:49)
[2023-07-07] MEDS ORDERED: MIRA3350 PO (18:49)
[2023-07-07] MEDS ORDERED: MILK400S12 PO (18:49)
[2023-07-08 08:00] LABS: C REACTIVE PROTEIN QUANTITATIV 183.16 MG/L (1.00-3.00); CALCIUM LEVEL 9.4 MG/DL (8.8-10.2); CREATININE FOR GFR 1.3 MG/DL (0.7-1.5); GLOMERULAR FILTRATION RATE 58.1 (>42); POTASSIUM SERUM 4.2 MEQ/L (3.6-5.0)
[2023-07-12] MEDS ORDERED: APIXABAN 5 MG TAB (ELIQUIS) PO SCH (21:00)
== END 2023-07-07 19:30 | disposition home or self-care (01) | DRG 862 ==
LOC: M ED 10:29 → M ED INP 15:08 → ENRESERV 16:27 → M MS5PR 20:00
PROVIDERS: ADMIT General Practice; ATTEND General Practice
PROC: 0W9J30Z Drainage of Pelvic Cavity with Drainage Device, Percutaneous Approach (ICD-10-PCS; principal; 2023-07-06)
DX: T81.43XA Infection following a procedure, organ and space surgical site, initial encounter (principal); K65.1 Peritoneal abscess; N17.9 Acute kidney failure, unspecified; Z68.41 Body mass index [BMI] 40.0-44.9, adult; I82.411 Acute embolism and thrombosis of right femoral vein; C91.11 Chronic lymphocytic leukemia of B-cell type in remission; I82.531 Chronic embolism and thrombosis of right popliteal vein; F17.210 Nicotine dependence, cigarettes, uncomplicated; N18.9 Chronic kidney disease, unspecified; E66.01 Morbid (severe) obesity due to excess calories; G47.33 Obstructive sleep apnea (adult) (pediatric); I48.0 Paroxysmal atrial fibrillation; K21.9 Gastro-esophageal reflux disease without esophagitis; F41.9 Anxiety disorder, unspecified; F32.A Depression, unspecified; E78.5 Hyperlipidemia, unspecified; Z85.46 Personal history of malignant neoplasm of prostate; M54.59 Other low back pain; Z79.899 Other long term (current) drug therapy; Z79.82 Long term (current) use of aspirin; Z92.21 Personal history of antineoplastic chemotherapy; Y83.6 Removal of other organ (partial) (total) as the cause of abnormal reaction of the patient, or of later complication, without mention of misadventure at the time of the procedure

== ENCOUNTER → 2023-07-04 | Outpatient (CLI) | payer OTHER ==
[~2023-07-04] MED LIST changes: +AMOX875T PO; +BACI1CAP PO; +ELIQ5TAB PO; +ISOVUE-370 76% 100ML VIAL As Ordered ONE; +LIDOCAINE 1% MDV 20ML VIAL As Ordered ONE; +MILK400S12 PO; +MIRA3350 PO; +PERC5TAB12 PO; +PRIL20TA2 PO; +SENO8.6T10 PO
== END ==
LOC: M RAD 17:45
PROVIDERS: ATTEND Physician Assistant
DX: K65.1 Peritoneal abscess (principal)

== ENCOUNTER → 2023-07-17 | Outpatient (CLI) | payer OTHER ==
[~2023-07-17] MED LIST changes: +AMOX875T PO; +BACI1CAP PO; +ECOT81TA5 PO; +ELIQ5TAB PO; +LINZ72CA PO; +MILK400S12 PO; +MIRA3350 PO; +PERC5TAB12 PO; +PRIL20TA2 PO; +SENO8.6T10 PO
[2023-07-17 14:28] LABS: HEMATOCRIT 38.9 % (42.0-52.0); HEMOGLOBIN 12.3 g/dl (13.5-17.5); MEAN CORPUSCULAR HEMOGLOBIN 28.1 pg (27.0-33.0); MEAN CORPUSCULAR HGB CONC 31.6 g/dl (32.0-36.5); MEAN CORPUSCULAR VOLUME 88.8 fl (80.0-96.0); PLATELET COUNT, AUTOMATED 555 10^3/uL (150-450); RED BLOOD COUNT 4.38 10^6/uL (4.30-6.10); WHITE BLOOD COUNT 19.4 10^3/uL (4.0-10.0)
[2023-07-17 14:48] LABS: ATYPICAL LYMPH 47 % (0-5); EOSINOPHILS 1 % (0-3); LYMPHOCYTES 6 % (16-44); MONOCYTES 5 % (0-5); NEUTROPHILS 41 % (28-66); PLATELET ESTIMATE INCREASED (NORMAL)
[2023-07-17 14:49] LABS: SMUDGE CELLS 2+
[2023-07-17 14:59] LABS: ALBUMIN 3.1 G/DL (3.2-5.2); ALKALINE PHOSPHATASE 108 U/L (46-116); ALT/SGPT < 9 U/L (7.0-40); AST/SGOT 16 U/L (<34); BILIRUBIN,TOTAL 0.3 MG/DL (0.3-1.2); BLOOD UREA NITROGEN 26 MG/DL (9-23); CALCIUM LEVEL 9.6 MG/DL (8.3-10.6); CARBON DIOXIDE LEVEL 27 MMOL/L (20-31); CHLORIDE LEVEL 103 MMOL/L (98-107); CREATININE FOR GFR 1.31 MG/DL (0.70-1.30); GLOMERULAR FILTRATION RATE 57.6 (>42); GLUCOSE, FASTING 105 MG/DL (74-106); POTASSIUM SERUM 5.2 MMOL/L (3.5-5.1); SODIUM LEVEL 139 MMOL/L (136-145); TOTAL PROTEIN 7.3 G/DL (5.7-8.2)
== END ==
LOC: M PLALAB 11:40
PROVIDERS: ATTEND Physician Assistant
DX: N18.9 Chronic kidney disease, unspecified (principal)

== ENCOUNTER → 2023-07-24 | Outpatient (CLI) | payer OTHER ==
[~2023-07-24] MED LIST changes: +GASTROGRAFIN SOLUTION 30ML As Ordered ONE; +ISOVUE-370 76% 100ML VIAL As Ordered ONE
== END ==
LOC: M RAD 12:44
PROVIDERS: ATTEND Internal Medicine Infectious Disease
DX: I82.411 Acute embolism and thrombosis of right femoral vein (principal); I82.421 Acute embolism and thrombosis of right iliac vein; K65.1 Peritoneal abscess

== ENCOUNTER → 2023-07-24 | Outpatient (REF) | payer OTHER ==
[~2023-07-24] MED LIST changes: -GASTROGRAFIN SOLUTION 30ML As Ordered ONE; -ISOVUE-370 76% 100ML VIAL As Ordered ONE
[2023-07-24 18:46] LABS: APPEARANCE, URINE CLEAR (CLEAR); BACTERIA, URINE AUTO NEGATIVE (NEGATIVE); BILIRUBIN, URINE AUTO NEGATIVE (NEGATIVE); BLOOD, URINE BLOOD NEGATIVE (NEGATIVE); COLOR, URINE STRAW (YELLOW); GLUCOSE, URINE (UA) AUTO NEGATIVE (NEGATIVE); KETONE, URINE AUTO NEGATIVE (NEGATIVE); LEUKOCYTE ESTERASE, URINE AUTO NEGATIVE (NEGATIVE); NITRITE, URINE AUTO NEGATIVE (NEGATIVE); PROTEIN, URINE AUTO NEGATIVE (NEGATIVE); RBC, URINE AUTO 0 /HPF (0-3); SPECIFIC GRAVITY URINE AUTO 1.017 (1.002-1.035); SQUAMOUS EPITHELIAL CELL UR AU 0 /HPF (0-6); UROBILINOGEN, URINE AUTO 0.2 mg/dL (0.0-2.0); WBC, URINE AUTO 0 /HPF (0-3)
== END ==
LOC: M SMT 17:21
PROVIDERS: ATTEND Urology
DX: R93.41 Abnormal radiologic findings on diagnostic imaging of renal pelvis, ureter, or bladder (principal); Z79.899 Other long term (current) drug therapy

== ENCOUNTER → 2023-07-26 | Outpatient (CLI) | payer OTHER | LOC: M RAD 12:50 | PROVIDERS: ATTEND Internal Medicine Medical Oncology | DX: C61 Malignant neoplasm of prostate (principal) | CPT/HCPCS: 78306; A9503 ==

== ENCOUNTER → 2023-07-30 | Outpatient (CLI) | payer OTHER ==
[2023-07-30 15:39] LABS: BASO # 0.1 10^3/uL (0.0-0.2); BASO % 0.4 % (0.0-1.0); EOS # 0.2 10^3/uL (0.0-0.5); EOS % 1.2 % (0.0-3.0); HEMATOCRIT 40.1 % (42.0-52.0); HEMOGLOBIN 12.8 g/dl (13.5-17.5); LYMPH # 8.7 10^3/uL (1.5-5.0); LYMPH % 50.9 % (24.0-44.0); MEAN CORPUSCULAR HEMOGLOBIN 28.8 pg (27.0-33.0); MEAN CORPUSCULAR HGB CONC 31.9 g/dl (32.0-36.5); MEAN CORPUSCULAR VOLUME 90.1 fl (80.0-96.0); MONO % 5.7 % (2.0-8.0); PLATELET COUNT, AUTOMATED 373 10^3/uL (150-450); RED BLOOD COUNT 4.45 10^6/uL (4.30-6.10); WHITE BLOOD COUNT 17.1 10^3/uL (4.0-10.0)
[2023-07-30 15:42] LABS: C REACTIVE PROTEIN QUANTITATIV 2.3 MG/DL (<1.0)
[2023-07-30 15:43] LABS: ALBUMIN 3.6 G/DL (3.2-5.2); BILIRUBIN,TOTAL 0.5 MG/DL (0.3-1.2); CALCIUM LEVEL 9.5 MG/DL (8.3-10.6); CREATININE FOR GFR 1.36 MG/DL (0.70-1.30); GLOMERULAR FILTRATION RATE 55.2 (>42); POTASSIUM SERUM 4.6 MMOL/L (3.5-5.1); TOTAL PROTEIN 7.6 G/DL (5.7-8.2)
[2023-07-30 15:48] LABS: ERYTHROCYTE SEDIMENTATION RATE > 130 mm/hr (0-20)
== END ==
LOC: M PLALAB 14:17
PROVIDERS: ATTEND Internal Medicine Infectious Disease
DX: K65.1 Peritoneal abscess (principal)

== ENCOUNTER → 2023-08-15 | Outpatient (CLI) | payer OTHER ==
[~2023-08-15] MED LIST changes: +LIDOCAINE 1% MDV 20ML VIAL As Ordered ONE
[2023-08-15 14:56] VITALS: TEMP 97.9
[2023-08-15 17:05] VITALS: BP 143/89; O2SAT 97
== END ==
LOC: M IRPRO 14:53
PROVIDERS: ATTEND Internal Medicine Infectious Disease
DX: K65.1 Peritoneal abscess (principal)

== ENCOUNTER → 2023-08-24 | Outpatient (REF) | payer OTHER ==
[~2023-08-24] MED LIST changes: -LIDOCAINE 1% MDV 20ML VIAL As Ordered ONE
== END ==
LOC: M SMT 17:13
PROVIDERS: ATTEND Urology
DX: K65.1 Peritoneal abscess (principal)

== ENCOUNTER → 2023-08-30 | Outpatient (CLI) | payer OTHER ==
[~2023-08-30] MED LIST changes: +ISOVUE-370 76% 100ML VIAL ONE
== END ==
LOC: M PLAIMG 10:21
PROVIDERS: ATTEND Urology
DX: K65.1 Peritoneal abscess (principal)
CPT/HCPCS: 74177; Q9967

== ENCOUNTER → 2023-08-31 | Outpatient (CLI) | payer OTHER ==
[~2023-08-31] MED LIST changes: -ISOVUE-370 76% 100ML VIAL ONE
[2023-08-31 14:52] LABS: BASO # 0.1 10^3/uL (0.0-0.2); BASO % 0.4 % (0.0-1.0); EOS # 0.3 10^3/uL (0.0-0.5); EOS % 1.9 % (0.0-3.0); HEMATOCRIT 41.5 % (42.0-52.0); LYMPH # 7.2 10^3/uL (1.5-5.0); LYMPH % 45.8 % (24.0-44.0); MEAN CORPUSCULAR HEMOGLOBIN 28.4 pg (27.0-33.0); MEAN CORPUSCULAR HGB CONC 31.3 g/dl (32.0-36.5); MEAN CORPUSCULAR VOLUME 90.6 fl (80.0-96.0); MONO % 6.3 % (2.0-8.0); NEUTROPHILS % 44.8 % (36.0-66.0); PLATELET COUNT, AUTOMATED 367 10^3/uL (150-450); RED BLOOD COUNT 4.58 10^6/uL (4.30-6.10); WHITE BLOOD COUNT 15.7 10^3/uL (4.0-10.0)
[2023-08-31 15:06] LABS: ERYTHROCYTE SEDIMENTATION RATE 90 mm/hr (0-20)
[2023-08-31 15:24] LABS: ALBUMIN 3.5 G/DL (3.2-5.2); ALKALINE PHOSPHATASE 101 U/L (46-116); ALT/SGPT < 9 U/L (7.0-40); AST/SGOT 10 U/L (<34); BILIRUBIN,TOTAL 0.3 MG/DL (0.3-1.2); BLOOD UREA NITROGEN 25 MG/DL (9-23); CALCIUM LEVEL 10.1 MG/DL (8.3-10.6); CARBON DIOXIDE LEVEL 26 MMOL/L (20-31); CHLORIDE LEVEL 108 MMOL/L (98-107); CREATININE FOR GFR 1.31 MG/DL (0.70-1.30); GLOMERULAR FILTRATION RATE 57.6 (>42); GLUCOSE, FASTING 110 MG/DL (74-106); POTASSIUM SERUM 5.2 MMOL/L (3.5-5.1); SODIUM LEVEL 142 MMOL/L (136-145)
== END ==
LOC: M PLALAB 11:16
PROVIDERS: ATTEND Internal Medicine Infectious Disease
DX: K65.1 Peritoneal abscess (principal)

== ENCOUNTER → 2023-09-19 | Outpatient (CLI) | payer OTHER ==
[~2023-09-19] MED LIST changes: +BICA50TA9 PO
[2023-09-19 16:02] LABS: C REACTIVE PROTEIN QUANTITATIV 0.6 MG/DL (<1.0)
[2023-09-19 16:03] LABS: ALBUMIN 3.8 G/DL (3.2-5.2); BILIRUBIN,TOTAL 0.3 MG/DL (0.3-1.2); CALCIUM LEVEL 9.2 MG/DL (8.3-10.6); CREATININE FOR GFR 1.46 MG/DL (0.70-1.30); GLOMERULAR FILTRATION RATE 50.8 (>42)
[2023-09-19 16:06] LABS: HEMATOCRIT 44.7 % (42.0-52.0); MEAN CORPUSCULAR HEMOGLOBIN 28.6 pg (27.0-33.0); MEAN CORPUSCULAR HGB CONC 31.3 g/dl (32.0-36.5); MEAN CORPUSCULAR VOLUME 91.2 fl (80.0-96.0); PLATELET COUNT, AUTOMATED 304 10^3/uL (150-450); WHITE BLOOD COUNT 13.3 10^3/uL (4.0-10.0)
[2023-09-19 16:11] LABS: ERYTHROCYTE SEDIMENTATION RATE 47 mm/hr (0-20)
[2023-09-19 16:41] LABS: ATYPICAL LYMPH 1 % (0-5); BASOPHILS 1 % (0-1); EOSINOPHILS 3 % (0-3); LYMPHOCYTES 48 % (16-44); MONOCYTES 9 % (0-5); NEUTROPHILS 36 % (28-66)
[2023-09-19 16:42] LABS: PLATELET CLUMPS SMALL AMT; PLATELET ESTIMATE NORMAL (NORMAL)
[2023-09-19 16:43] LABS: ANISOCYTOSIS 1+
== END ==
LOC: M PLALAB 12:56
PROVIDERS: ATTEND Internal Medicine Infectious Disease
DX: C91.10 Chronic lymphocytic leukemia of B-cell type not having achieved remission (principal); K65.1 Peritoneal abscess

== ENCOUNTER → 2023-09-20 | Outpatient (CLI) | payer OTHER ==
[~2023-09-20] MED LIST changes: +LEUPROLIDE 45MG SYRINGE KIT (LUPRON DEPOT) (FOR ONCOLOGY) IM ONE
== END ==
LOC: M ONCR 11:14
PROVIDERS: ATTEND General Practice
DX: C61 Malignant neoplasm of prostate (principal)
CPT/HCPCS: 74178; 96402; G0463; J9217; Q9963; Q9967

== ENCOUNTER → 2023-09-20 | Outpatient (CLI) | payer OTHER ==
[~2023-09-20] MED LIST changes: +GASTROGRAFIN SOLUTION 30ML As Ordered ONE; +ISOVUE-370 76% 100ML VIAL As Ordered ONE; -LEUPROLIDE 45MG SYRINGE KIT (LUPRON DEPOT) (FOR ONCOLOGY) IM ONE
== END ==
LOC: M RAD 15:43
PROVIDERS: ATTEND Internal Medicine Infectious Disease
DX: K65.1 Peritoneal abscess (principal); A49.8 Other bacterial infections of unspecified site

== ENCOUNTER → 2023-11-21 | Outpatient (CLI) | payer OTHER ==
[~2023-11-21] MED LIST changes: -GASTROGRAFIN SOLUTION 30ML As Ordered ONE; -ISOVUE-370 76% 100ML VIAL As Ordered ONE; +VENL150C43 PO
[2023-11-21 14:16] LABS: PROSTATIC SPECIFIC AG MONITOR 0.65 NG/ML (< 4.00)
[2023-11-21 14:42] LABS: TESTOSTERONE < 7 NG/DL (241-827)
== END ==
LOC: M ONCR 09:54
PROVIDERS: ATTEND General Practice
DX: C61 Malignant neoplasm of prostate (principal); Z90.79 Acquired absence of other genital organ(s); R23.2 Flushing; Z98.890 Other specified postprocedural states; F17.210 Nicotine dependence, cigarettes, uncomplicated; Z71.2 Person consulting for explanation of examination or test findings; Z79.01 Long term (current) use of anticoagulants; Z79.818 Long term (current) use of other agents affecting estrogen receptors and estrogen levels; Z79.82 Long term (current) use of aspirin; Z79.899 Other long term (current) drug therapy; Z85.6 Personal history of leukemia
CPT/HCPCS: 36415; 84153; 84403; G0463

== ENCOUNTER → 2023-11-26 | Outpatient (CLI) | payer OTHER ==
[~2023-11-26] MED LIST changes: +VENL37.52 PO
[2023-11-26 14:12] LABS: BILIRUBIN,TOTAL 0.3 MG/DL (0.3-1.2); CALCIUM LEVEL 9.6 MG/DL (8.3-10.6); CREATININE FOR GFR 1.9 MG/DL (0.70-1.30); GLOMERULAR FILTRATION RATE 37.5 (>42); POTASSIUM SERUM 5.2 MMOL/L (3.5-5.1); TOTAL PROTEIN 7.5 G/DL (5.7-8.2)
[2023-11-26 14:24] LABS: HEMATOCRIT 46.1 % (42.0-52.0); HEMOGLOBIN 14.4 g/dl (13.5-17.5); MEAN CORPUSCULAR HGB CONC 31.2 g/dl (32.0-36.5); MEAN CORPUSCULAR VOLUME 89.7 fl (80.0-96.0); PLATELET COUNT, AUTOMATED 344 10^3/uL (150-450); RED BLOOD COUNT 5.14 10^6/uL (4.30-6.10)
[2023-11-26 18:25] LABS: ATYPICAL LYMPH 9 % (0-5); LYMPHOCYTES 60 % (16-44); MONOCYTES 1 % (0-5); NEUTROPHILS 30 % (28-66)
[2023-11-26 18:26] LABS: PLATELET ESTIMATE NORMAL (NORMAL)
== END ==
LOC: M PLALAB 09:49
PROVIDERS: ATTEND Physician Assistant
DX: I87.2 Venous insufficiency (chronic) (peripheral) (principal)

== ENCOUNTER → 2024-01-15 | Outpatient (RCR) | payer OTHER ==
[~2024-01-15] MED LIST changes: -POTA10CA60 PO; +POTA10CA70 PO; +PRED5TA PO; -ROSU10TA6 PO; +ROSU10TA61 PO; +ZYTI250T PO
== END ==
LOC: M ONCR 12-25 10:05
PROVIDERS: ATTEND General Practice
DX: Z51.0 Encounter for antineoplastic radiation therapy (principal); C61 Malignant neoplasm of prostate

== ENCOUNTER → 2024-01-30 | Outpatient (CLI) | payer OTHER ==
[~2024-01-30] MED LIST changes: +SEMA1PEN2 SQ
== END ==
LOC: M RAD 11:53
PROVIDERS: ATTEND General Practice
DX: C61 Malignant neoplasm of prostate (principal); Z86.718 Personal history of other venous thrombosis and embolism; R22.41 Localized swelling, mass and lump, right lower limb

== ENCOUNTER → 2024-02-15 | Outpatient (RCR) | payer OTHER | LOC: M ONCR 01-16 09:30 | PROVIDERS: ATTEND General Practice | DX: Z51.0 Encounter for antineoplastic radiation therapy (principal); C61 Malignant neoplasm of prostate ==

== ENCOUNTER 2024-03-07 09:25 | Outpatient (RCR) | payer OTHER ==
[~2024-03-07 09:25] MED LIST changes: +BICA50TA4 PO; -BICA50TA9 PO
== END 2024-03-16 ==
LOC: M ONCR 09:25
PROVIDERS: ATTEND General Practice
DX: Z51.0 Encounter for antineoplastic radiation therapy (principal); C61 Malignant neoplasm of prostate

== ENCOUNTER → 2024-04-02 | Outpatient (CLI) | payer OTHER ==
[~2024-04-02] MED LIST changes: +TRIA1CR80 TOP
== END ==
LOC: M RAD 14:06
PROVIDERS: ATTEND Internal Medicine Medical Oncology
DX: N28.9 Disorder of kidney and ureter, unspecified (principal)

== ENCOUNTER → 2024-07-07 | Outpatient (CLI) | payer OTHER ==
[~2024-07-07] MED LIST changes: +GASTROGRAFIN SOLUTION 30ML ONE; +ISOVUE-370 76% 100ML VIAL ONE
== END ==
LOC: M PLAIMG 08:44
PROVIDERS: ATTEND Physician Assistant
DX: M54.50 Low back pain, unspecified (principal); D72.829 Elevated white blood cell count, unspecified
CPT/HCPCS: 74177; Q9963; Q9967

== ENCOUNTER → 2024-12-02 | Outpatient (CLI) | payer MEDICARE ==
[~2024-12-02] MED LIST changes: -FLUO0.0119 OTIC; +FLUO0.0126 OTIC; -GASTROGRAFIN SOLUTION 30ML ONE; -ISOVUE-370 76% 100ML VIAL ONE
== END ==
LOC: M RAD 09:55
PROVIDERS: ATTEND Physician Assistant
DX: R60.0 Localized edema (principal)

== ENCOUNTER → 2025-01-05 | Outpatient (CLI) | payer MEDICARE ==
[~2025-01-05] MED LIST changes: +ISOVUE-370 76% 100ML VIAL As Ordered ONE
== END ==
LOC: M RAD 09:24
PROVIDERS: ATTEND Physician Assistant
DX: D38.1 Neoplasm of uncertain behavior of trachea, bronchus and lung (principal); R59.0 Localized enlarged lymph nodes
CPT/HCPCS: 71260; Q9967

== ENCOUNTER → 2025-01-20 | Outpatient (CLI) | payer MEDICARE ==
[~2025-01-20] MED LIST changes: -ISOVUE-370 76% 100ML VIAL As Ordered ONE
== END ==
LOC: M PLARAD 11:13
PROVIDERS: ATTEND Physician Assistant
DX: R59.0 Localized enlarged lymph nodes (principal); C18.8 Malignant neoplasm of overlapping sites of colon; Z85.46 Personal history of malignant neoplasm of prostate; C85.90 Non-Hodgkin lymphoma, unspecified, unspecified site
CPT/HCPCS: 78815; A9552

== ENCOUNTER → 2025-02-03 | Outpatient (POV) | payer MEDICARE | LOC: M IRPOV 09:47 | PROVIDERS: ATTEND Radiology Diagnostic Radiology | DX: I82.511 Chronic embolism and thrombosis of right femoral vein (principal); I87.1 Compression of vein; C61 Malignant neoplasm of prostate; C91.10 Chronic lymphocytic leukemia of B-cell type not having achieved remission; F17.210 Nicotine dependence, cigarettes, uncomplicated; Z90.79 Acquired absence of other genital organ(s); Z92.3 Personal history of irradiation; Z79.01 Long term (current) use of anticoagulants; Z79.899 Other long term (current) drug therapy; Z86.718 Personal history of other venous thrombosis and embolism ==

== ENCOUNTER → 2025-05-27 | Outpatient (POV) | payer MEDICARE ==
[~2025-05-27] VITALS: Ht 177.8 cm; Wt 143.2 kg
[~2025-05-27] MED LIST changes: +CEPH500C PO; +ERGO500029 PO; +HYDR-3363 PO; +OXYB15TA14 PO; +SPIR50TA4 PO; +VELT1POW PO
[2025-05-27 10:51] VITALS: BP 150/90; O2SAT 100
== END ==
LOC: M IRPOV 10:44
PROVIDERS: ATTEND Radiology Diagnostic Radiology
DX: I87.091 Postthrombotic syndrome with other complications of right lower extremity (principal); F17.210 Nicotine dependence, cigarettes, uncomplicated; Z79.899 Other long term (current) drug therapy; Z85.72 Personal history of non-Hodgkin lymphomas; Z86.718 Personal history of other venous thrombosis and embolism

== ENCOUNTER 2025-06-17 09:13 | Observation (INO) | payer MEDICARE ==
[~2025-06-17] VITALS: Ht 177.8 cm; Wt 157.3 kg
[2025-06-17] MEDS: NICOTINE 21 MG/24 HR 1 EA TRANSDERMAL TD SCH (09:00)
[~2025-06-17 09:13] MED LIST changes: +NYST0.1C TOP; +PROC1CRE5 TOP; -ROSU10TA61 PO; +ROSU10TA90 PO; +TORS20TA2 PO; +TRIA1CRE5 TOP
[2025-06-17] MEDS: LIDOCAINE 1% MDV 20 ML VIAL SC SCH (09:20)
[2025-06-17] MEDS ORDERED: NS (Normal Saline) 0.9% 1,000 ML IV SCH ×2 (09:20→15:50)
[2025-06-17] MEDS: ISOVUE-300 61% 100 ML VIAL IV SCH (09:20)
[2025-06-17] MEDS ORDERED: MIDAZOLAM INJ 2 MG/2 ML VIAL As Ordered ONE (11:19)
[2025-06-17] MEDS ORDERED: ROCURONIUM BROMIDE 50MG/5ML VIAL As Ordered ONE (11:21)
[2025-06-17] MEDS ORDERED: LIDOCAINE 2% 100 MG/5 ML SDV (FOR ANES.) As Ordered ONE (11:21)
[2025-06-17] MEDS ORDERED: dexAMETHasone 4 MG/ML 1 ML VIAL As Ordered ONE (11:30)
[2025-06-17] MEDS ORDERED: ONDANSETRON 4MG/2ML VIAL As Ordered ONE (11:30)
[2025-06-17] MEDS ORDERED: LABETALOL 100 MG/20 ML VIAL As Ordered ONE (12:13)
[2025-06-17] MEDS ORDERED: SUGAMMADEX SODIUM 500 MG/5 ML VIAL As Ordered ONE (12:22)
[2025-06-17] MEDS ORDERED: PHENYLephrine 500MCG 5ML (100MCG/ML) SYRINGE As Ordered ONE (12:47)
[2025-06-17] MEDS: HEPARIN 1,000 UNITS/ML 10 ML VIAL (FOR RADIOLOGY & DIALYSIS ONLY) IV PRN (14:20)
[2025-06-17] MEDS ORDERED: ONDANSETRON 4MG/2ML VIAL IV PRN (16:15)
[2025-06-17] MEDS ORDERED: LR 1,000 ML IV SCH (16:15)
[2025-06-17] MEDS: HYDROMORPHONE HCL 0.5 MG/0.5 ML SYRINGE IV PRN (17:34)
[2025-06-17] MEDS ORDERED: ACETAMINOPHEN 325 MG TAB PO PRN (17:35)
[2025-06-17 18:24] LABS: PLATELET COUNT, AUTOMATED 395 10^3/uL (150-450)
[2025-06-17 18:35] LABS: ALT/SGPT 14.0 U/L (7.0-40); AST/SGOT 24.0 U/L (<34); CALCIUM LEVEL 8.9 MG/DL (8.3-10.6); CARBON DIOXIDE LEVEL 26.0 MMOL/L (20-31); CHLORIDE LEVEL 103.0 MMOL/L (98-107); CREATININE FOR GFR 2.74 MG/DL (0.70-1.30); GLOMERULAR FILTRATION RATE 23.9 (>42); POTASSIUM SERUM 4.3 MMOL/L (3.5-5.1); SODIUM LEVEL 139.0 MMOL/L (136-145)
[2025-06-17 18:41] LABS: INR 1.25
[2025-06-17] MEDS ORDERED: NYSTATIN 100,000 UNITS/GM TOPICAL PWD 15 GM TOP PRN (18:50)
[2025-06-17] MEDS ORDERED: hydrALAZINE 20 MG/ML 1 ML VIAL IV PRN (18:50)
[2025-06-17] MEDS ORDERED: HYDR-3719 PO (19:06)
[2025-06-17] MEDS ORDERED: HYDR-3363 PO (19:06)
[2025-06-17] MEDS ORDERED: POTA-151 PO (19:07)
[2025-06-17] MEDS ORDERED: HOME MED LIST COMPLETE! XX SCH (19:10)
[2025-06-17 19:34] VITALS: BP 148/77; TEMP 97.2; O2SAT 94
[2025-06-17] MEDS: PANTOPRAZOLE 40MG VIAL IV SCH (20:17)
[2025-06-17] MEDS: DOCUSATE SODIUM 100 MG CAPSULE PO SCH (20:18)
[2025-06-18] VITALS (24 sets, daily range): BP systolic 114–132; BP diastolic 56–80; TEMP 97.4–98.5; O2SAT 81–98
[2025-06-18] MEDS: ANUSOL HC CREAM 30 GM TOP PRN (02:29)
[2025-06-18 05:51] LABS: PLATELET COUNT, AUTOMATED 324 10^3/uL (150-450)
[2025-06-18 06:17] LABS: ALT/SGPT 13.0 U/L (7.0-40); AST/SGOT 23.0 U/L (<34); CALCIUM LEVEL 8.2 MG/DL (8.3-10.6); CARBON DIOXIDE LEVEL 26.0 MMOL/L (20-31); CHLORIDE LEVEL 106.0 MMOL/L (98-107); CREATININE FOR GFR 2.47 MG/DL (0.70-1.30); GLOMERULAR FILTRATION RATE 27.0 (>42); POTASSIUM SERUM 4.6 MMOL/L (3.5-5.1); SODIUM LEVEL 136.0 MMOL/L (136-145)
[2025-06-18] MEDS: ASPIRIN 81 MG ENTERIC TABLET PO SCH (09:30)
[2025-06-18] MEDS: APIXABAN 5 MG TAB PO SCH (09:30)
[2025-06-18] MEDS: FLUZONE HIGH DOSE (65+) 0.5 ML SYRINGE (25-26) IM.IMMUN ONE (12:25)
[2025-06-19] VITALS (8 sets, daily range): BP systolic 109–115; BP diastolic 56–65; TEMP 97.2–97.4; O2SAT 95–99
[2025-06-19 06:20] LABS: PLATELET COUNT, AUTOMATED 295 10^3/uL (150-450)
[2025-06-19 06:37] LABS: ALT/SGPT 12.0 U/L (7.0-40); AST/SGOT 20.0 U/L (<34); CALCIUM LEVEL 8.4 MG/DL (8.3-10.6); CARBON DIOXIDE LEVEL 28.0 MMOL/L (20-31); CHLORIDE LEVEL 106.0 MMOL/L (98-107); CREATININE FOR GFR 2.14 MG/DL (0.70-1.30); GLOMERULAR FILTRATION RATE 32.1 (>42); POTASSIUM SERUM 4.9 MMOL/L (3.5-5.1); SODIUM LEVEL 141.0 MMOL/L (136-145)
[2025-06-19] MEDS ORDERED: ASPI81TAEC PO (07:36)
[2025-06-19] MEDS ORDERED: COLA100C5 PO (07:36)
[2025-06-19] MEDS ORDERED: TORS20TA2 PO (09:23)
== END 2025-06-19 12:53 | disposition home or self-care (01) ==
LOC: M IRPRO 09:13 → INTOOBSV 17:33 → M PCU 17:33
PROVIDERS: ADMIT Internal Medicine; ATTEND Internal Medicine
DX: J95.821 Acute postprocedural respiratory failure (principal); J96.01 Acute respiratory failure with hypoxia; I87.1 Compression of vein; E66.2 Morbid (severe) obesity with alveolar hypoventilation; I87.091 Postthrombotic syndrome with other complications of right lower extremity; I82.891 Chronic embolism and thrombosis of other specified veins; I12.9 Hypertensive chronic kidney disease with stage 1 through stage 4 chronic kidney disease, or unspecified chronic kidney disease; N18.30 Chronic kidney disease, stage 3 unspecified; D72.829 Elevated white blood cell count, unspecified; I48.91 Unspecified atrial fibrillation; C61 Malignant neoplasm of prostate; R54 Age-related physical debility; Z79.899 Other long term (current) drug therapy; Z79.01 Long term (current) use of anticoagulants; F41.9 Anxiety disorder, unspecified; F32.A Depression, unspecified; G47.33 Obstructive sleep apnea (adult) (pediatric); Z23 Encounter for immunization
CPT/HCPCS: 36415; 37238; 37239; 37252; 37253; 80053; 85027; 85610; 90662; 96374; 96376; 97116; 97161; C1725; C1876; C1887; C1894; G0008; G0378; J1100; J1171; J1920; J2250; J2371; J2405; J2470; J3010; Q9967

== ENCOUNTER → 2025-06-23 | Outpatient (CLI) | payer MEDICARE ==
[~2025-06-23] MED LIST changes: +ASPI81TAEC PO; +COLA100C5 PO; +HYDR-3719 PO; +POTA-151 PO; +ROSU10TA61 PO; -ROSU10TA90 PO
== END ==
LOC: M RAD 10:15
PROVIDERS: ATTEND Radiology Diagnostic Radiology
DX: I87.001 Postthrombotic syndrome without complications of right lower extremity (principal); R59.0 Localized enlarged lymph nodes

== ENCOUNTER → 2025-06-25 | Outpatient (POV) | payer MEDICARE ==
[~2025-06-25] VITALS: Ht 172.7 cm; Wt 160.2 kg
[2025-06-25 12:08] VITALS: BP 158/86; O2SAT 97
== END ==
LOC: M IRPOV 11:48
PROVIDERS: ATTEND Registered Nurse School
DX: Z48.812 Encounter for surgical aftercare following surgery on the circulatory system (principal); Z95.820 Peripheral vascular angioplasty status with implants and grafts

== ENCOUNTER → 2025-07-20 | Outpatient (CLI) | payer MEDICARE ==
[~2025-07-20] MED LIST changes: -ROSU10TA61 PO; +ROSU10TA90 PO
== END ==
LOC: M RAD 13:34
PROVIDERS: ATTEND Radiology Diagnostic Radiology
DX: I87.091 Postthrombotic syndrome with other complications of right lower extremity (principal); Z48.812 Encounter for surgical aftercare following surgery on the circulatory system

== ENCOUNTER → 2025-07-22 | Outpatient (POV) | payer MEDICARE ==
[~2025-07-22] VITALS: Ht 172.7 cm; Wt 160.2 kg
[2025-07-22 13:45] VITALS: BP 125/69; O2SAT 96
== END ==
LOC: M IRPOV 13:28
PROVIDERS: ATTEND Radiology Diagnostic Radiology
DX: Z48.812 Encounter for surgical aftercare following surgery on the circulatory system (principal); I87.091 Postthrombotic syndrome with other complications of right lower extremity